=== PATIENT | female | born 2000 | race Caucasian/White ===

== ENCOUNTER 2020-03-21 13:45 | Outpatient (CLI) | payer OTHER ==
[~2020-03-21] VITALS: Ht 162.6 cm; Wt 62.6 kg
[~2020-03-21 13:45] MED LIST: ACET1TAB55 PO; CYTO100T PO; IBUP200C25 PO; NITR-67 PO; NORC1TAB7 PO; ROXI15TA12 PO; ZOFR4TAB16 PO; prenatal PO
[2020-03-21 14:13] VITALS: BP 99/63
--- NOTE | 2020-03-21 16:31 | IPNPDOC ---
Text Note Date of Service The patient was seen on 03/21/20. NOTE patient is a 19 yo @26+1wks presents to triage after having vaginal bleeding post coitus at 1300 today. Patient denies cramping. Report bleeding enough to fill up her pad. vitals: normal NAD abd: nd, soft, nt, gravid le: no edema/erythema/tenderness doptones: 150's toco: quiet speculum exam: cervix visually closed, blood in vagina, bright red bleeding with de santiago swap touching cervix OB US: cervical length: 4.39cm, T-shaped, no dynamic change noted. placenta ~ 2.8cm from cervix. a/p patient with post coital bleeding, likely due to friable cervix. bleeding and cramping precautions given. vaginal rest for remainder of . f/u with regularly scheduled clinic appointment. DO hardy VS,Fishbone, I+O VS, Fishbone, I+O Vital Signs Date Time Temp Pulse Resp B/P (MAP) Pulse Ox O2 Delivery O2 Flow Rate FiO2 03/21/20 14:13 98.3 88 18 99/63 (75) POOJA RUFFIN DO Mar 21, 2020 16:31
--- NOTE | 2020-03-21 17:03 | REPVR ---
PROCEDURE INFORMATION: Exam: US After First Trimester, Transabdominal Exam date and time: 03/21/2020 3:25 PM Age: 19 years old Clinical indication: Lmp or gestational age (in weeks): 26; Antepartum complications; Bleeding; ; Additional info: 27wks, vaginal bleeding, assess cervical length and R/O abru TECHNIQUE: Imaging protocol: Real-time transabdominal obstetrical ultrasound of the maternal pelvis and a second or third trimester with image documentation. COMPARISON: No relevant prior studies available. FINDINGS: Gestation: Single live intrauterine gestation. Heart rate: 144 bpm. Presentation: Breech. Placenta: Unremarkable. No subchorionic bleed. Placenta is posterior. Amniotic fluid: Amniotic fluid is normal for gestational age. ANATOMY: Cerebellum: Normal. Cisterna magna: Normal. Cerebral ventricles: Normal. Upper lip and nose: Normal. Heart four-chamber view, heart size and position: Normal. Kidneys: Normal. Stomach: Normal. Bladder: Normal. Umbilical cord vessel number: Normal three-vessel cord. Spine: Suboptimally visualized. Arms and legs: Suboptimally visualized. Gender: Male. BIOMETRY: Estimated gestational age: 26 weeks, 6 days. Estimated due date: June 21, 2020. Estimated weight: 1006 g (2 lb, 3 oz). Biparietal diameter: 6.5 cm, corresponding to an estimated gestational age of 26 weeks, 1 day. Head circumference: 24.8 cm, corresponding to an estimated gestational age of 26 weeks, 6 days. Abdominal circumference: 22.4 cm, corresponding to an estimated gestational age of 26 weeks, 5 days. Femur length: 5.1 cm, corresponding to an estimated gestational age of 27 weeks, 3 days. MATERNAL ANATOMY: Uterus: Unremarkable. Cervix: Closed, measuring approximately 4.4 cm in length. Right adnexa: Ovary is obscured by overlying bowel gas. Left adnexa: Ovary is obscured by overlying bowel gas. IMPRESSION: Single live intrauterine gestation, as described above. Closed cervix. No evidence of placenta previa or abruption. Electronically signed by: Raman De La Garza On 03/21/2020 17:02:57 PM
== END 2020-03-21 16:34 | disposition home or self-care (01) ==
LOC: M LDO 13:45
PROVIDERS: ATTEND Obstetrics & Gynecology
DX: O26.852 Spotting complicating pregnancy, second trimester (principal); Z3A.26 26 weeks gestation of pregnancy
CPT/HCPCS: 76811; 76817; G0378; G0463

== ENCOUNTER 2020-07-01 13:29 | Inpatient (IN) | payer OTHER ==
[~2020-07-01] VITALS: Ht 162.6 cm; Wt 72.9 kg
[2020-07-01] VITALS (9 sets, daily range): BP systolic 99–113; BP diastolic 53–69
[~2020-07-01 13:29] MED LIST changes: -CYTO100T PO; +CYTO1TAB2 PO
[2020-07-01] MEDS ORDERED: MULTTAB20 PO (13:54)
[2020-07-01] MEDS ORDERED: VITA250T4 PO (13:54)
[2020-07-01 15:05] LABS: BASO % 0.2 % (0.0-1.0); EOS # 0.1 10^3/uL (0.0-0.5); EOS % 0.8 % (0.0-3.0); HEMATOCRIT 29.5 % (36.0-47.0); HEMOGLOBIN 9.3 g/dl (12.0-15.5); LYMPH # 1.7 10^3/uL (1.5-5.0); LYMPH % 20.4 % (24.0-44.0); MEAN CORPUSCULAR HEMOGLOBIN 26.1 pg (27.0-33.0); MEAN CORPUSCULAR HGB CONC 31.5 g/dl (32.0-36.5); MEAN CORPUSCULAR VOLUME 82.6 fl (80.0-96.0); MONO # 0.8 10^3/uL (0.0-0.8); MONO % 9.9 % (0.0-5.0); NEUTROPHILS # 5.6 10^3/uL (1.5-8.5); NEUTROPHILS % 68.2 % (36.0-66.0); PLATELET COUNT, AUTOMATED 183 10^3/uL (150-450); RED BLOOD COUNT 3.57 10^6/uL (4.00-5.40); WHITE BLOOD COUNT 8.3 10^3/uL (4.0-10.0)
[2020-07-01] MEDS ORDERED: miSOPROStol 25 MCG 1/4 TAB (S0191) PV ONE (17:00)
--- NOTE | 2020-07-01 17:02 | HPEPDOC ---
Obstetrical History & Physical General Date of Admission Jul 01, 2020 at 13:29 History of Present Illness S: Sofiya is a 20yo at 40+5 by LMP and 9 wk US who presents to LND for admission d/t diagnosis of oligohydramnios during her clinic visit today. She is doing well today without complaints or concerns. She denies fever, chills, stool change, nausea, vomiting, urinary complaints, headaches, visual changes, abdominal pain, swelling, or change in discharge. She denies vaginal bleeding, leaking of fluids, regular painful contractions, decreased FM. OB Problems List 1. Left choroid plexus cyst on anatomy scan (no genetic screening) 2. anemia of 3. 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 Family hx: denies defects or genetic disorders, problems with anesthesia, bleeding or clotting disorders Chief Complaint: Induction of labor Information Provided By: Patient Age: 20 : 3 Term: 0 Pre-term: 0 Abortions: 2 Livin Care Care: Good Care Dating Final EDC: Jun 26, 2020 Final EDC for Daily Update: Jun 26, 2020 Antepartum Course Height (inches): 64 Pre- weight (lbs.): 126 Admission Weight (lbs.): 161 Change in Weight (lbs.): 35 Past Medical History Past Obstetrical History : Past Obstetrical History: Multigravida [employer] History: No pertinent history Past Medical History Surgical History: Dilatation and Curettage Family History Significant Family History: No pertinent family hx Social History Marital Status: Family situation: Spouse/partner home Psychosocial History: No pertinent psych hx * Smoker: non-smoker Alcohol: Denies Imunizations Tdap status: current Allergies Coded Allergies: SEAFOOD (Verified Allergy, Severe, Swelling, difficulty breathing, 07/01/20) Medications Scheduled Ascorbic Acid (Vitamin C) 250 Mg Tablet, 1 TAB PO DAILY No122/Iron/Folic Acid ( Multi Tablet) 1 Each Tablet, 1 TAB PO DAILY Physical Examination Physical Examination GENERAL: Alert and oriented times three. ABDOMEN: Gravid and non-tender to touch. FETUS: Is vertex (VTX) by sterile vaginal examination (SVE). HEART RATE: Regular rate and rhythm. LUNGS: Observed normal, nonlabored breathing. EXTREMITIES: No edema. VSS, afebrile, normotensive FHR 125, moderate variability, + accels, no deels noted CTX: no contractions noted, some uterine irritability VE: FT/25/-3, posterior and firm Vital Signs/I&O Vital Signs Date Time Temp Pulse Resp B/P (MAP) Pulse Ox O2 Delivery O2 Flow Rate FiO2 07/01/20 16:07 68 99/53 (68) 07/01/20 13:53 98.6 18 Laboratory Data 24H LABS Laboratory Tests 2 07/01/20 13:37: Serology Scanned Report Hepatitis B Testing 07/01/20 14:52: Immature Granulocyte % (Auto) 0.5, Neutrophils (%) (Auto) 68.2H, Lymphocytes (%) (Auto) 20.4L, Monocytes (%) (Auto) 9.9H, Eosinophils (%) (Auto) 0.8, Basophils (%) (Auto) 0.2, Neutrophils # (Auto) 5.6, Lymphocytes # (Auto) 1.7, Monocytes # (Auto) 0.8, Eosinophils # (Auto) 0.1, Basophils # (Auto) 0.0, Nucleated Red Blood Cells % (auto) 0.0 07/01/20 14:53: Syphilis Serology NONREACTIVE CBC/BMP Laboratory Tests 07/01/20 14:52 Assessment/Plan Assessment A: Sofiya is a 20yo at 40+5wks being admitted for IOL d/t oligohydramnios. Category I FHT. Plan P: Admit to LND, consent for IOL (CRB, cytotec, pitocin), pain management options, operative vaginal delivery, C/S. IV start, admission labs drawn Start IOL with 25mcg PV CEFM x1 hour after administration, then intermittent with Category I FHT Close maternal/ monitoring Plan for CRB when cervix is appropriate Regular diet PO and IV hydration Consult with OB as indicated Anticipate HIEN ARNOLD CNM Jul 01, 2020 17:01
[2020-07-01] MEDS ORDERED: MOM 30ML SUSPENSION UDC PO PRN (20:45)
[2020-07-01] MEDS ORDERED: ACETAMINOPHEN 500 MG TAB PO PRN (20:45)
[2020-07-01] MEDS ORDERED: SIMETHICONE 80 MG CHEW TAB PO PRN (20:45)
[2020-07-01] MEDS ORDERED: diphenhydrAMINE 25MG CAP PO PRN (20:45)
[2020-07-01] MEDS ORDERED: CALCIUM CARBONATE 500 MG CHEW U/D PO PRN (20:45)
[2020-07-01] MEDS ORDERED: ONDANSETRON 4MG/2ML VIAL IV SCH (20:45)
[2020-07-01] MEDS ORDERED: PROMETHAZINE INJ 25 MG/ML VIAL (J2550) IV PRN (20:45)
[2020-07-01] MEDS: miSOPROStol 50 MCG 1/2 TAB (S0191) PO SCH (21:02)
[2020-07-02] VITALS (34 sets, daily range): BP systolic 90–118; BP diastolic 50–67
[2020-07-02] MEDS: miSOPROStol 50 MCG 1/2 TAB (S0191) PO SCH (01:00)
[2020-07-02] MEDS: BUTORPHANOL 2 MG/ML INJ (J0595) IV PRN ×2 (04:30→08:26)
[2020-07-02] MEDS ORDERED: OXYTOCIN 30 UNITS IN 0.9% NaCl 500ML IV BAG (J2590) As Ordered ONE (07:15)
--- NOTE | 2020-07-02 07:31 | IPNPDOC ---
Text Note Date of Service The patient was seen on 07/02/20. NOTE S: Patient becoming more uncomfortable w/ ctx. No LOF O VSS and WNL SVE 2/100/-1 FHT: Cat 1, 140s, reactive, no decel, ctx q2-3min A/P: Fetus reassuring. Consider pitocin if ctx decrease. Patient upset since last exam told 5cm dilated. I Explained difference could be due to significant thinness. Yolanda RN came into room and disagreed with exam and stated it must be fingers totally spread apart in front of patient. Subject dropped. VS,Fishbone, I+O VS, Fishbone, I+O Laboratory Tests 07/01/20 14:52 Vital Signs Date Time Temp Pulse Resp B/P (MAP) Pulse Ox O2 Delivery O2 Flow Rate FiO2 07/02/20 06:08 60 18 99/58 (72) 07/02/20 04:40 Room Air 07/02/20 03:56 97.9 Anny Coyle MD Jul 02, 2020 07:31
[2020-07-02] MEDS ORDERED: PROMETHAZINE INJ 25 MG/ML VIAL (J2550) IV ONE (08:15)
[2020-07-02] MEDS ORDERED: OXYTOCIN DRIP 30 UNITS in IV 1 EA IV SCH (08:15)
[2020-07-02] MEDS: LR 1,000 ML IV SCH ×3 (11:42→14:38)
[2020-07-02] MEDS ORDERED: FENTANYL 2MCG/ML ROPIVACAINE 0.2% IN 0.9% NACL 100ML IVBAG As Ordered ONE (12:49)
[2020-07-02] MEDS ORDERED: LACTATED RINGER'S 1000 ML IV PRN (15:15)
[2020-07-02] MEDS ORDERED: ONDANSETRON 4MG/2ML VIAL IV PRN (15:15)
[2020-07-02] MEDS ORDERED: diphenhydrAMINE 50MG/ML VIAL (J1200) IV PRN (15:15)
[2020-07-02] MEDS ORDERED: EPIDURAL COMMENT XX SCH (15:15)
[2020-07-02] MEDS ORDERED: REFRIGERATOR IV KEYS XX PRN (15:15)
[2020-07-02] MEDS ORDERED: NALOXONE INJ 0.4MG/1ML VIAL (J2310 PER 1MG) IV PRN (15:15)
[2020-07-02] MEDS ORDERED: ePHEDrine SULFATE 25 MG/5 ML(5MG/ML) SYRINGE IV PRN (15:15)
[2020-07-02] MEDS ORDERED: FENTANYL/ROPIVACAINE/NACL BAG 100 ML EPIDURAL SCH (15:15)
[2020-07-02] MEDS ORDERED: EPIDURAL/PCA KEYS XX PRN (15:15)
--- NOTE | 2020-07-02 17:25 | DNPDOC ---
[facility] Delivery Note Delivery Note DATE OF DELIVERY: 06/29/2020 TIME OF : 1649 GENDER: Male. APGARS: 9 and 9. WEIGHT:, 3840 grams or 8 pounds 7 ounces. LACERATIONS: none ANESTHESIA: Epidural. ESTIMATED BLOOD LOSS: 300ml COUNTS: 5 laparotomy sponges accounted for prior to and after delivery. DELIVERY NOTE: On 07/02/2020 at 1649, Mrs. Millan a 20-year-old 1 now para 1, had a spontaneous vaginal delivery of viable male , Apgars, 9 and 9 and weight 3840 g or 8 lbs. 7 oz. Head was delivered occiput anterior (OA) . Nuchal cord was manually reduced, followed by delivery of the shoulders and corpus. Infant was handed to mom with a good cry. Cord was clamped times two and was cut by the father of baby under my direction. Placenta was then drained and delivered grossly intact. A premixed bag of 500 mL of normal saline with 30 units of Pitocin was then bolused along with uterine massage until the uterus was firm. On inspection, cervix, vagina, perineum was grossly intact and hemostatic. Mom and baby in recovery on stable condition. ADDY BALLARD MD. Jul 02, 2020 17:25
[2020-07-02] MEDS ORDERED: ACETAMINOPHEN 500 MG TAB PO PRN (19:15)
[2020-07-02] MEDS ORDERED: SLF 3 ML SYR IV PRN (19:15)
[2020-07-02] MEDS ORDERED: SLF 3 ML SYR IV SCH (22:00)
[2020-07-03] MEDS ORDERED: OXYTOCIN DRIP 30 UNITS in IV 1 EA IV SCH (02:24)
[2020-07-03] MEDS ORDERED: RHOGAM 300 MCG (1500 IU) INJ (J2790) IM SCH (02:30)
[2020-07-03] MEDS ORDERED: DOCUSATE SODIUM 100MG CAPSULE PO PRN (02:30)
[2020-07-03] MEDS ORDERED: DIBUCAINE 1% OINTMENT 30GM TOP PRN (02:30)
[2020-07-03] MEDS ORDERED: MEASLES,MUMPS,RUBELLA VACCINE INJ (MMR-II) (90707) SC SCH (02:30)
[2020-07-03] MEDS ORDERED: MOM 30ML SUSPENSION UDC PO PRN (02:30)
[2020-07-03] MEDS ORDERED: ANUSOL HC CREAM 30GM TOP PRN (02:30)
[2020-07-03] MEDS ORDERED: METHYLERGONOVINE MALEATE 0.2 MG TAB PO PRN (02:30)
[2020-07-03] MEDS ORDERED: IBUPROFEN 600MG TAB PO PRN (02:30)
[2020-07-03] MEDS: IBUPROFEN 800 MG TAB PO PRN ×3 (03:55→22:46)
[2020-07-03 06:00] VITALS: BP 100/54
--- NOTE | 2020-07-03 06:13 | IPNPDOC ---
Progress Note Date of Service: Jul 03, 2020 Day#: 1 Progress Note SUBJECT: Doing well without complaints. Ambulating, voiding and pain is well-c ontrolled. Reports minimal lochia. +breast feeding OBJECTIVE: VITAL SIGNS: Within normal limits, afebrile. Alert and oriented times three. Abdomen: Fundus firm at U-2. Soft, NTTP. Ext: neg calf tenderness. ASSESSMENT: day #1 status post normal spontaneous vaginal delivery. Recovering in stable condition. PLAN: 1. Continue routine care 2. Discharge plans for tomorrow VS, I&O, 24H, Fishbone Vital Signs/I&O Vital Signs Date Time Temp Pulse Resp B/P (MAP) Pulse Ox O2 Delivery O2 Flow Rate FiO2 07/02/20 20:44 99.3 84 18 100/61 (74) 07/02/20 04:40 Room Air I&O- Last 24 Hours up to 6 AM 07/03/20 06:00 Intake Total 4002.7 ml Output Total 1000 ml Balance 3002.7 ml ADDY BALLARD MD. Jul 03, 2020 06:13
[2020-07-03] MEDS: PRENATAL VITAMINS CHEWABLE TABLET PO SCH (09:52)
[2020-07-03] MEDS ORDERED: INFLUENZA QUADRIVALENT PF VACCINE 0.5ML SYRINGE IM ONE (12:00)
[2020-07-03 18:00] VITALS: BP 115/69
[2020-07-04 06:00] VITALS: BP 116/71
[2020-07-04] MEDS ORDERED: ACET-683 PO (08:00)
[2020-07-04] MEDS ORDERED: IBUP80TA PO (08:00)
[2020-07-04] MEDS: PRENATAL VITAMINS CHEWABLE TABLET PO SCH (08:03)
[2020-07-04] MEDS: IBUPROFEN 800 MG TAB PO PRN (08:03)
--- NOTE | 2020-07-04 08:10 | IPNPDOC ---
Progress Note Date of Service: Jul 04, 2020 Day#: 2 Progress Note SUBJECT: Sofiya is a 20yo G3 now P1021 s/p uncomplicated spontaneous vaginal d elivery at 40+6 weeks' at approximately 1649 hours on [id number] of a Male 8 pounds 7ounces (3840 grams) without any lacerations, doing well day #2. She has been ambulating, voiding spontaneously without issue and tolerating regular diet. Breast feeding without issue. 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 OBJECTIVE: VITAL SIGNS: Within normal limits, afebrile. Alert and oriented times three. Observed normal, nonlabored breathing,. Abdomen: Fundus firm at U-2. Soft, NTTP. Minimal lochia. ASSESSMENT: PP Day #2, stable and progressing well, normal involution. exclusively and doing well. Vitals within normal limits, afebrile, hemodynamically stable with no evidence of infection. PLAN: 1. Discharge to home today. 2. Tylenol and Motrin for pain. 3. Encourage frequent breast feeding and ambulation. 4. LARC method for contraception at PP visit. 5. Routine PP visit in 6 weeks in clinic. 6. Discussed return precautions at length. VS, I&O, 24H, Fishbone Vital Signs/I&O Vital Signs Date Time Temp Pulse Resp B/P (MAP) Pulse Ox O2 Delivery O2 Flow Rate FiO2 07/04/20 06:00 98.2 68 16 116/71 (86) 07/03/20 18:00 100 Room Air HIEN ARNOLD CNM Jul 04, 2020 08:06
--- NOTE | 2020-07-04 08:13 | OBDS ---
[facility] Obstetrical Discharge Sum. Obstetrical Discharge Summary Date: Jul 04, 2020 : 3 Term: 1 Pre-term: 0 Abortions: 2 Livin Rh: Negative Rubella: Immune Labor IOL for oligo, uncomplicated labor. Delivery Infant Sex: Male Weight: pounds (8), ounces (7), grams (3840) A/P, Post Course List any complications Admission diagnosis: Oligohydramnios Discharge diagnosis: Delivered Condition at Discharge: Stable Discharge Instructions: Discharged to home with return precautions, PPH, infection, instructions. Activity: Increase as tolerated. Diet: Regular Medications: PP medications ordered at [facility]. Follow-up: 6 weeks PP visit. HIEN ARNOLD CNM Jul 04, 2020 08:13
== END 2020-07-04 19:00 | disposition home or self-care (01) | DRG 807 ==
LOC: M LDI 13:29 → M OBS 07-02 20:40
PROVIDERS: ADMIT Registered Nurse Maternal Newborn; ATTEND Obstetrics & Gynecology
PROC: 3E0P7GC Introduction of Other Therapeutic Substance into Female Reproductive, Via Natural or Artificial Opening (ICD-10-PCS; 2020-07-01)
PROC: 10E0XZZ Delivery of Products of Conception, External Approach (ICD-10-PCS; principal; 2020-07-03)
DX: O41.03X0 Oligohydramnios, third trimester, not applicable or unspecified (principal); Z37.0 Single live birth; Z3A.40 40 weeks gestation of pregnancy; O48.0 Post-term pregnancy; O99.02 Anemia complicating childbirth; D64.9 Anemia, unspecified; O69.81X0 Labor and delivery complicated by cord around neck, without compression, not applicable or unspecified